=== PATIENT | male | born 1970 | race American Indian/Alaskan Native ===

== ENCOUNTER 2022-03-22 18:56 | Emergency (ER) | payer MEDICAID, OTHER ==
[~2022-03-22] VITALS: Ht 180.3 cm; Wt 86.4 kg
[~2022-03-22 18:56] MED LIST: CEPH-357 PO; DIPH-423 PO; SULF-117 PO
[2022-03-22 19:15] VITALS: BP 131/81
== END 2022-03-22 22:30 | disposition left against medical advice (07) ==
LOC: ER 18:56
DX: M25.571 Pain in right ankle and joints of right foot (principal); Z53.21 Procedure and treatment not carried out due to patient leaving prior to being seen by health care provider
CPT/HCPCS: 73590; 73610

== ENCOUNTER 2024-05-16 01:13 | Emergency (ER) | payer MEDICAID, OTHER ==
[~2024-05-16] VITALS: Ht 180.3 cm; Wt 90.9 kg
[2024-05-16] MEDS: HYDROmorphone 1 mg/ml syringe IV ONE ×2 (01:59→03:48)
[2024-05-16] MEDS: LIDOcaine 1% W/epiNEPHrine 1:100,000 20ml vial SQ ONE ×2 (02:05→02:33)
[2024-05-16] MEDS: ceFAZolin/D5W- 1GM premix 50 ML IV SCH (02:08)
[2024-05-16] MEDS: normal saline 1000ml 1,000 ML IV ONE (02:08)
[2024-05-16] MEDS: TETanus/Pertussis (Acell)/Diphther VAC/PF (Tdap-Adult) 0.5ml syringe IMVAC ONE (02:09)
[2024-05-16] MEDS ORDERED: iohexol 350MG/ML 100ml bottle IV ONE (02:41)
[2024-05-16 04:13] LABS: BASOPHILS # (AUTO) 0.1 X10'3 (0-0.2); BASOPHILS % (AUTO) 0.5 % (0-1); EOSINOPHILS % (AUTO) 0.1 % (0-6); HEMATOCRIT 36.8 % (42.0-52.0); HEMOGLOBIN 12.2 g/dl (14.0-17.9); LYMPHOCYTES % (AUTO) 7.3 % (21-51); MEAN CORPUSCULAR HEMOGLOBIN 29.7 PG (27.0-31.0); MEAN CORPUSCULAR HGB CONC 33.1 g/dL (33.0-36.5); MEAN CORPUSCULAR VOLUME 89.8 FL (78-98); MEAN PLATELET VOLUME 7.2 FL (7.4-10.4); MONOCYTES # (AUTO) 1.2 X10'3 (0-0.9); MONOCYTES % (AUTO) 8.8 % (2-12); NEUTROPHILS # (AUTO) 11.2 X10'3 (1.8-7.7); NEUTROPHILS % (AUTO) 83.3 % (42-75); PLATELET COUNT 218 X10'3 (140-440); RED BLOOD COUNT 4.09 X10'6 (4.70-6.10); RED CELL DISTRIBUTION WIDTH 13.4 % (11.5-14.5); WHITE BLOOD COUNT 13.4 X10'3 (4.5-11.0)
[2024-05-16 04:29] LABS: ALANINE AMINOTRANSFERASE 20 U/L (12-78); ALKALINE PHOSPHATASE 72 IU/L (46-116); ANION GAP 9 (8-16); ASPARTATE AMINO TRANSFERASE 34 U/L (10-37); BILIRUBIN,TOTAL 0.4 MG/DL (0.1-1.0); BLOOD UREA NITROGEN 16 MG/DL (7-18); BUN/CREATININE RATIO 14.5 (10.0-20.0); CALCIUM 7.1 MG/DL (8.5-10.1); CHLORIDE 110 MMOL/L (99-107); GLUCOSE 102 MG/DL (70-104); SODIUM 141 MMOL/L (135-145); TOTAL CARBON DIOXIDE 22.2 MMOL/L (24-32); TOTAL PROTEIN 5.9 G/DL (6.4-8.2); eCRCL 83 ML/MIN; eGFR 70 ML/MIN
[2024-05-16 04:32] LABS: POTASSIUM 2.8 MMOL/L (3.5-5.1)
[2024-05-16] MEDS ORDERED: potassium chloride 8mEq ER tablet PO SCH ×2 (04:50→08:00)
[2024-05-16] MEDS: magnesium sulf-water 2g/50mL 50 ML IV ONE (05:02)
[2024-05-16] MEDS: potassium Cl 20 mEq SR tablet PO SCH (05:02)
[2024-05-16 07:31] VITALS: BP 136/68; PULSE 57; RESP 16; TEMP 98; O2SAT 99
== END 2024-05-16 07:36 | disposition still patient (30) ==
LOC: ER 01:14
DX: S51.811A Laceration without foreign body of right forearm, initial encounter (principal); S70.312A Abrasion, left thigh, initial encounter; S49.91XA Unspecified injury of right shoulder and upper arm, initial encounter; Z88.0 Allergy status to penicillin; Z79.2 Long term (current) use of antibiotics; Z79.899 Other long term (current) drug therapy; W54.0XXA Bitten by dog, initial encounter; Y93.89 Activity, other specified; Y92.89 Other specified places as the place of occurrence of the external cause; Y99.8 Other external cause status
CPT/HCPCS: 20950; 36415; 73090; 73110; 73206; 80053; 85025; 90471; 90715; 96365; 96366; 96367; 96375; 96376; 99285; A6266; J0690; J1170; J7030; Q9967; A6407; A6446; A6449